=== PATIENT | male | born 1940 | race Caucasian/White ===

== ENCOUNTER 2016-11-17 11:43 | Emergency (ER) | payer MEDICARE ==
[2016-11-17 11:43] VITALS: PULSE 80
[2016-11-17 12:11] VITALS: BMI 25.7
[2016-11-17] MEDS ORDERED: Sodium Chloride 0.9% 1,000 ML IV STA (12:11)
[2016-11-17 12:15] VITALS: RESP 17; TEMP 98.1; O2SAT 97
--- NOTE | 2016-11-17 12:16 | ED PDOC ---
HPI: Abdomen Time Seen by Provider: 11/17/16 12:01 Chief Complaint (Nursing): Abdominal Pain Chief Complaint (Provider): Abd pain History Per: Patient History/Exam Limitations: no limitations Onset/Duration Of Symptoms: Days (Today) Outside of [place] travel?: No Current Symptoms Are (Timing): Still Present Additional Complaint(s): Abd pain diffuse. Last bowel movement yesterday after an enema. No nausea, vomit, diarrhea, weakness, fever, chest pain, dyspnea, back pain, headaches, dizziness. No numbness, tingles. Is depressed and has a affect like that for a long time per family. No dysuria. Past Medical History Vital Signs: Last Vital Signs Temp 98.1 F 11/17/16 12:09 Pulse 68 11/17/16 12:09 Resp 17 11/17/16 12:09 BP 131/67 11/17/16 12:09 Pulse Ox 97 11/17/16 12:09 - Medical History PMH: Anxiety, Atrial Fibrillation, Benign Prostatic Hyperplasia, Depression, Gastritis, HTN Denies: Diabetes, Hepatitis, HIV, Chronic Kidney Disease, Seizures, Sexually Transmitted Disease - Surgical History Surgical History: Cholecystectomy (May 2015), Hernia Repair, Pacemaker - Family History Family History: States: Unknown Family Hx - Living Arrangements Living Arrangements: With Family - Social History Current smoker - smoking cessation education provided: No Alcohol: None Drugs: Denies - Home Medications Home Medications: Ambulatory Orders Medication Instructions Recorded Benztropine [Cogentin] 0.5 mg PO BID #0 tab 03/10/16 DULoxetine [Cymbalta] 20 mg PO DAILY #0 ecc 03/10/16 DULoxetine [Cymbalta] 60 mg PO DAILY #0 ecc 03/10/16 Dabigatran [Pradaxa] 150 mg PO BID #0 cap 03/10/16 Digoxin [Lanoxin] 0.25 mg PO DAILY #0 tab 03/10/16 Docusate [Colace] 100 mg PO BID #0 cap 03/10/16 Ferrous Sulfate [Feosol] 325 mg PO DAILY #0 tab 03/10/16 Gabapentin [Neurontin] 100 mg PO TID #0 cap 03/10/16 Levothyroxine [Synthroid] 25 mcg PO DAILY@0630 #0 tab 03/10/16 Megestrol [Megace] 20 mg PO TID #0 tab 03/10/16 OLANZapine [Zyprexa Zydis] 5 mg PO 1600 #0 odt 03/10/16 Pantoprazole [Protonix EC Tab] 40 mg PO DAILY #0 ect 03/10/16 - Allergies Allergies/Adverse Reactions: Allergies Allergy/AdvReac Type Severity Reaction Status Date / Time clindamycin Allergy RASH Verified 11/17/16 12:09 nitrofurantoin Allergy RASH Verified 11/17/16 12:09 Penicillins Allergy RASH Verified 11/17/16 12:09 Review of Systems ROS Statement: Except As Marked, All Systems Reviewed And Found Negative Gastrointestinal: Positive for: Abdominal Pain, Constipation Psych: Positive for: Depression Physical Exam - Reviewed Nursing Documentation Reviewed: Yes Vital Signs Reviewed: Yes - Physical Exam Appears: Positive for: Non-toxic, No Acute Distress Head Exam: Positive for: ATRAUMATIC, NORMAL INSPECTION, NORMOCEPHALIC Skin: Positive for: Normal Color, Warm, DRY Eye Exam: Positive for: EOMI, Normal appearance, PERRL ENT: Positive for: Normal ENT Inspection Neck: Positive for: Normal, Painless ROM Cardiovascular/Chest: Positive for: Regular Rate, Rhythm, Chest Non Tender. Negative for: Edema Respiratory: Positive for: CNT, Normal Breath Sounds Gastrointestinal/Abdominal: Positive for: Bowel Sounds, Soft, Tenderness ( diffuse; mild.). Negative for: Distended, Guarding Back: Positive for: Normal Inspection. Negative for: L CVA Tenderness, R CVA Tenderness Extremity: Positive for: Normal ROM Neurologic/Psych: Positive for: Alert, Oriented - Laboratory Results Result Diagrams: 11/17/16 12:30 11/17/16 12:30 Interpretation Of Abn Labs: 22 bun - ECG ECG: Positive for: Interpreted By Me, Viewed By Me ECG Rhythm: Positive for: Venticular Paced - Progress ED Course And Treament: 1218: Stable. Family refusing po or IV contrast as he had other cts in the past with IV contrast and does not want more. 1447: Dr. Ewing to take over care and fu on ct. Disposition - Clinical Impression Clinical Impression: Abdominal pain - Patient ED Disposition Is Patient to be Admitted: Transfer of Care - Disposition Disposition: Transfer of Care Disposition Time: 14:48 Condition: STABLE Patient Signed Over To: Larisa Ewing
[2016-11-17 13:03] LABS: BASO % 0.4 % (0.0-2.0); EOS % 0.6 % (0.0-4.0); HEMATOCRIT 41.4 % (35.0-51.0); LYMPH # 1.3 K/uL (1.0-4.3); LYMPH % 21.9 % (20.0-40.0); MEAN CELL VOLUME 88.1 fl (80.0-94.0); MEAN CORPUSCULAR HEMOGLOBIN 30.6 pg (27.0-31.0); MEAN CORPUSCULAR HGB CONC 34.7 g/dL (33.0-37.0); MEAN PLATELET VOLUME 8.1 fl (7.2-11.7); MONO # 0.3 K/uL (0.0-0.8); MONO % 5.5 % (0.0-10.0); NEUT # 4.3 K/uL (1.8-7.0); NEUT % 71.6 % (50.0-75.0); NRBC % 0.1 % (0.0-0.0); RED CELL DISTRIBUTION WIDTH 14.5 % (11.5-14.5); WHITE BLOOD COUNT 6.1 K/uL (4.8-10.8)
[2016-11-17 13:13] LABS: BLOOD UREA NITROGEN 22 mg/dl (9-20); CALCIUM 8.7 mg/dL (8.4-10.2); CARBON DIOXIDE 28 mmol/L (22-30); CHLORIDE 100 mmol/L (98-107); GFR AFRICAN-AMERICAN > 60; GLUCOSE,RANDOM 112 mg/dL (75-110); POTASSIUM 3.7 MMOL/L (3.6-5.0); SODIUM 138 mmol/l (132-148); TOTAL PROTEIN 7.4 G/DL (6.3-8.2)
[2016-11-17 13:14] LABS: ALKALINE PHOSPHATASE 57 U/L (38-126); ALT/SGPT 27 U/L (21-72); AST/SGOT 17 U/L (17-59); LIPASE 67 U/L (23-300)
[2016-11-17 13:22] LABS: PARTIAL THROMBOPLASTIN TIME 35.8 SECONDS (23.3-32.5)
--- NOTE | 2016-11-17 15:16 | ED PDOC ---
- Laboratory Results Result Diagrams: 11/17/16 12:30 11/17/16 12:30 - ECG O2 Sat by Pulse Oximetry: 97 Medical Decision Making Medical Decision Making: received patient from Dr. Lopez. Patient is pending official reading of CT abd and pelvis. 4.10 - CT report reviewed. Patient has long h/o of chronic constipation. GI had started on Linzess and Miralax which he is mostly compliant, except for the past 2-3 days. Amitiza does not work. He is not on narcotics. He appears to be closely followed by his PMD, contaminated land consultant (Dr. Stephanie Alcaraz) and by GI. A colonoscopy was done by Dr. Dudley recently. There is lesions. A polyp was removed. Disposition Doctor Will See Patient In The: Office Counseled Patient/Family Regarding: Diagnosis, Need For Followup - Clinical Impression Clinical Impression: Chronic constipation - POA Present On Arrival: None - Disposition Referrals: Otis Alcaraz MD [Staff Provider] - Maurizio Dudley DO [Doctor Osteopathy] - Disposition: Routine/Home Disposition Time: 16:24 Condition: STABLE Instructions: Constipation (ED), High Fiber Diet (ED)
--- NOTE | 2016-11-17 16:05 | CT ---
PROCEDURE: CT Abdomen and Pelvis without intravenous contrast HISTORY: R/O stone COMPARISON: Comparison is made to the previous study dated 05/19/2015 TECHNIQUE: Axial and reformatted coronal and sagittal CT images of the abdomen and pelvis were obtained without IV or oral contrast administration.. Contrast Dose: 0 Radiation dose: Total exam DLP = 389.08 mGy-cm. This CT exam was performed using one or more of the following dose reduction techniques: Automated exposure control, adjustment of the mA and/or kV according to patient size, and/or use of iterative reconstruction technique. FINDINGS: LOWER THORAX: Unremarkable. LIVER: Again seen is low-attenuation measures 1.3 centimeter. GALLBLADDER AND BILE DUCTS: Status post cholecystectomy PANCREAS: Unremarkable. No gross lesion or ductal dilatation. SPLEEN: Unremarkable. ADRENALS: Unremarkable. No mass. KIDNEYS AND URETERS: There is a 3 millimeter nonobstructing calculus at the upper pole of the right kidney. No evidence of hydronephrosis or hydroureter VASCULATURE: Unremarkable. No aortic aneurysm. BOWEL: [id number] constipation. No evidence of bowel obstruction APPENDIX: No evidence of appendicitis. PERITONEUM: Unremarkable. No free fluid. No free air. LYMPH NODES: Unremarkable. No enlarged lymph nodes. BLADDER: Unremarkable. REPRODUCTIVE: The prostate is moderately enlarged contains foci of calcification. BONES: No acute fracture. . Degenerative changes. Scattered small foci of density in the osseous structure. Correlate clinically for possible multiple myeloma. OTHER FINDINGS: None. IMPRESSION: 3 millimeter nonobstructing calculus at the upper pole of the right kidney. No evidence of significant hydronephrosis or hydroureter. [id number] constipation. Moderate enlarged prostate. Scattered small foci of low attenuation in the osseous structures. Correlate clinically for osteopenia or multiple myeloma .
[2016-11-17 16:43] VITALS: BP 152/64; PULSE 65
--- NOTE | 2016-11-17 18:39 | CARD ---
APPROVED REPORT EKG Measurement Heart [id number] <Conclusion> Atrial fibrillation with frequent ventricular-paced complexes Low voltage QRS ST & T wave abnormality, consider inferior ischemia ST & T wave abnormality, consider anterolateral ischemia Abnormal ECG
== END 2016-11-17 16:30 | disposition home or self-care (01) ==
LOC: H.ER 11:43
DX: R10.9 Unspecified abdominal pain (principal); K59.09 Other constipation; C90.00 Multiple myeloma not having achieved remission; F32.9 Major depressive disorder, single episode, unspecified; F41.9 Anxiety disorder, unspecified; I10 Essential (primary) hypertension; I48.91 Unspecified atrial fibrillation; M85.80 Other specified disorders of bone density and structure, unspecified site; N40.0 Benign prostatic hyperplasia without lower urinary tract symptoms; Z79.01 Long term (current) use of anticoagulants; Z88.0 Allergy status to penicillin; Z95.0 Presence of cardiac pacemaker
CPT/HCPCS: 74176; 80053; 83690; 84484; 85025; 85610; 85730; 93005; 96360; 96374; 99283; J7040

== ENCOUNTER 2017-05-07 11:00 | Inpatient (IN) | payer MEDICARE, BC ==
[2017-05-07 11:00] VITALS: BMI 25.7
[2017-05-07] MEDS ORDERED: Sodium Chloride 0.9% 1,000 ML IV STA (11:36)
--- NOTE | 2017-05-07 11:42 | ED PDOC ---
HPI: General Adult Time Seen by Provider: 05/07/17 11:23 Chief Complaint (Nursing): Shortness Of Breath Chief Complaint (Provider): Shortness of Breath History Per: Patient History/Exam Limitations: no limitations Onset/Duration Of Symptoms: Days (x 1) Current Symptoms Are (Timing): Better Additional Complaint(s): Mayelin is a 77 year old male with a past medical history of A-trial Fibrillation and cholecystectomy who was brought by EMS to the Emergency Department complaining of anxiety and shortness of breath this morning. Patient states he has improved since coming to the ED. Patient states he has had generalized weakness associated with no bowel movement x 5 days. Denies vomiting, abdominal pain. PMD: No Family Provider Past Medical History Reviewed: Historical Data, Nursing Documentation, Vital Signs Vital Signs: Last Vital Signs Temp Pulse Resp BP Pulse Ox 98 05/07/17 12:05 - Medical History PMH: Anxiety, Atrial Fibrillation, Benign Prostatic Hyperplasia, Depression, Gastritis, HTN, Hypothyroidism Denies: Diabetes, Hepatitis, HIV, Chronic Kidney Disease, Seizures, Sexually Transmitted Disease - Surgical History Surgical History: Cholecystectomy (May 2015), Hernia Repair, Pacemaker - Family History Family History: States: Unknown Family Hx - Home Medications Home Medications: Ambulatory Orders Medication Instructions Recorded Benztropine [Cogentin] 0.5 mg PO BID #0 tab 03/10/16 DULoxetine [Cymbalta] 20 mg PO DAILY #0 ecc 03/10/16 DULoxetine [Cymbalta] 60 mg PO DAILY #0 ecc 03/10/16 Dabigatran [Pradaxa] 150 mg PO BID #0 cap 03/10/16 Digoxin [Lanoxin] 0.25 mg PO DAILY #0 tab 03/10/16 Docusate [Colace] 100 mg PO BID #0 cap 03/10/16 Ferrous Sulfate [Feosol] 325 mg PO DAILY #0 tab 03/10/16 Gabapentin [Neurontin] 100 mg PO TID #0 cap 03/10/16 Levothyroxine [Synthroid] 25 mcg PO DAILY@0630 #0 tab 03/10/16 Megestrol [Megace] 20 mg PO TID #0 tab 03/10/16 OLANZapine [Zyprexa Zydis] 5 mg PO 1600 #0 odt 03/10/16 Pantoprazole [Protonix EC Tab] 40 mg PO DAILY #0 ect 03/10/16 - Allergies Allergies/Adverse Reactions: Allergies Allergy/AdvReac Type Severity Reaction Status Date / Time clindamycin Allergy RASH Verified 05/07/17 11:07 nitrofurantoin Allergy RASH Verified 05/07/17 11:07 Penicillins Allergy RASH Verified 05/07/17 11:07 Review of Systems Respiratory: Positive for: Shortness of Breath (Has improved since coming to ED) Gastrointestinal: Negative for: Vomiting, Abdominal Pain Psych: Positive for: Anxiety (Has improved since coming to ED) Physical Exam - Reviewed Nursing Documentation Reviewed: Yes Vital Signs Reviewed: Yes - Physical Exam Appears: Positive for: Non-toxic Cardiovascular/Chest: Positive for: Regular Rate, Rhythm Respiratory: Positive for: Normal Breath Sounds. Negative for: Respiratory Distress (Lungs ) Gastrointestinal/Abdominal: Positive for: Bowel Sounds (Present), Soft. Negative for: Distended Rectal: Positive for: Other (Empty Vault). Negative for: Mass Extremity: Positive for: Normal ROM - Laboratory Results Result Diagrams: 05/07/17 12:35 05/07/17 12:35 - ECG O2 Sat by Pulse Oximetry: 98 (RA) Pulse Ox Interpretation: Normal Medical Decision Making Medical Decision Making: Time: 11:36 Impressions: Initial Plan: - CMP - CBC - Chest X-Ray - Sodium Chloride 0.9% 1,000 ml IV 100 mls/hr - Abdominal 2 Views Time: 11:55 - Lipase - EKG Scribe Attestation: Documented by Jason Carrasco, acting as a scribe for Hay Laurent MD Provider Scribe Attestation: All medical record entries made by the Scribe were at my direction and personally dictated by me. I have reviewed the chart and agree that the record accurately reflects my personal performance of the history, physical exam, medical decision making, and the department course for this patient. I have also personally directed, reviewed, and agree with the discharge instructions and disposition. Disposition - Clinical Impression Clinical Impression: Intestinal obstruction - Patient ED Disposition Is Patient to be Admitted: Yes - Disposition Disposition Time: 13:16 Condition: FAIR Forms: [email or web address] (Pashto) - Pt Status Changed To: Hospital Disposition Of: Inpatient - Admit Certification Admit to Inpatient:: After my assessment, the patient will require hospitalization for at least two midnights. This is because of the severity of symptoms shown, intensity of services needed, and/or the medical risk in this patient being treated as an outpatient. - POA Present On Arrival: None
[2017-05-07 12:50] LABS: BASO % 0.7 % (0.0-2.0); EOS # 0.1 K/uL (0.0-0.7); EOS % 1.6 % (0.0-4.0); HEMATOCRIT 40.1 % (35.0-51.0); LYMPH # 1.3 K/uL (1.0-4.3); LYMPH % 25.4 % (20.0-40.0); MEAN CELL VOLUME 88.5 fl (80.0-94.0); MEAN CORPUSCULAR HEMOGLOBIN 29.5 pg (27.0-31.0); MEAN CORPUSCULAR HGB CONC 33.4 g/dL (33.0-37.0); MEAN PLATELET VOLUME 7.7 fl (7.2-11.7); MONO # 0.2 K/uL (0.0-0.8); MONO % 4.4 % (0.0-10.0); NEUT # 3.5 K/uL (1.8-7.0); NEUT % 67.9 % (50.0-75.0); NRBC % 0.1 % (0.0-0.0); RED CELL DISTRIBUTION WIDTH 13.9 % (11.5-14.5); WHITE BLOOD COUNT 5.1 K/uL (4.8-10.8)
[2017-05-07 13:05] LABS: ALB/GLOB RATIO 0.9 (1.0-2.1); ALKALINE PHOSPHATASE 65 U/L (38-126); ALT/SGPT 21 U/L (21-72); AST/SGOT 14 U/L (17-59); BILIRUBIN,TOTAL 0.7 mg/dl (0.2-1.3); BLOOD UREA NITROGEN 14 mg/dl (9-20); CALCIUM 8.4 mg/dL (8.4-10.2); CARBON DIOXIDE 30 mmol/L (22-30); CHLORIDE 104 mmol/L (98-107); GFR AFRICAN-AMERICAN > 60; GLUCOSE,RANDOM 92 mg/dL (75-110); LIPASE 50 U/L (23-300); POTASSIUM 3.8 MMOL/L (3.6-5.0); SODIUM 142 mmol/l (132-148); TOTAL PROTEIN 7.5 G/DL (6.3-8.2)
--- NOTE | 2017-05-07 13:41 | RAD ---
HISTORY: sob COMPARISON: Chest radiographs 02/24/2016. TECHNIQUE: Chest PA and lateral FINDINGS: LUNGS: No active pulmonary disease. PLEURA: No significant pleural effusion identified. No pneumothorax apparent. CARDIOVASCULAR: Mild cardiomegaly is appreciate however there is no pulmonary vascular derangement identified. Unipolar permanent cardiac pacemaker again identified. OSSEOUS STRUCTURES: No significant abnormalities. VISUALIZED UPPER ABDOMEN: Surgical clips in the right upper quadrant abdomen. OTHER FINDINGS: None. IMPRESSION: Mild cardiomegaly. No pulmonary vascular derangement. No infiltrate or pleural effusion bilaterally.
--- NOTE | 2017-05-07 13:43 | RAD ---
HISTORY: constipation COMPARISON: Abdomen and pelvis CT examination 11/17/2016. FINDINGS: BOWEL: Gas is seen distending primarily large bowel loops as well as occasional small-bowel loops. A few air-fluid levels are seen in the left efren abdomen which are presumed predominantly in small-bowel. No free intraperitoneal gas or abnormal intra-abdominal calcifications are noted. Surgical clips in the right upper quadrant. Overall pattern is felt to be nonspecific but likely or to reflect bowel obstruction at this time. Developing ileus is possible. Further clinical correlation is advised. BONES: Normal. OTHER FINDINGS: None. IMPRESSION: Possible developing ileus. Small bowel obstruction is not favored. Follow-up clinical and radiographic monitoring are advised.
[2017-05-07] MEDS: Sodium Chloride 0.9% 1,000 ML IV SCH (23:00)
[2017-05-08] MEDS: Sodium Chloride 0.9% 1,000 ML IV SCH (06:05)
--- NOTE | 2017-05-08 08:02 | CP.PCM.CON ---
<Rodrick Givens - Last Filed: 05/08/17 09:49> History of Present Illness - History of Present Illness History of Present Illness: PGY4 Initial GI Consult Mayelin Lopez is a 77M w/ hx of chronic constipation, colon cancer diagnosed 17 years ago s/p segmental colon resection and chemotherapy who presents to the ER with complaints of abd pain and constipation. Pt states that he suffers from chronic constipation for years. He notes that he has been taking miralax twice a day for months without significant relief. he notes that his last BM was 5 days ago and it was hard. Pt denies any BRBPR or melena. He denies any nausea or vomiting. He notes that he had abd pain which started 3 days ago. He states that the pain was in the lower quadrant bilaterally. According to the pt, he often gets abdominal pain with severe constipation. He notes that his recently administered an enema without significant relief. He has a hx of colon cancer. He states that he was diagnosed at the age of 60 and subsequently had a part of his distal colon removed and received chemotherapy. He has a primary GI physician in [place] and according to him, underwent a surveillance colonoscopy last year but had a poor prep. Since admission, RN reports no nausea, vomiting, or BM. Spoke to who was bedside, she presented a CT abdomen from [place] which revealed sigmoid stricture and no distal obstruction. PMHx: Endogenous Depression, Dysphagia, Chronic A Fib with S/P VVI pacer implant on pradaxa, hypothyroid PSHx:S/P Partial colectomy forCa Colon, lap della 2014 Family Hx: Denies family hx of colon ca Social Hx: pt was reluctant to give any additional hx Endoscopy Hx: colonscopy 2016: poor prep, pt was reluctant to give any additional hx ROS: 12 point ROS conducted, neg other than above Past Patient History - Infectious Disease Hx of Infectious Diseases: None - Past Social History Smoking Status: Never Smoked - CARDIAC Hx Atrial Fibrillation: Yes Hx Hypertension: Yes Hx Pacemaker: Yes - PULMONARY Hx Respiratory Disorders: No Hx Tuberculosis: No - NEUROLOGICAL Hx Seizures: No - HEENT Hx Cataracts: Yes (Sx Hx) - RENAL Hx Chronic Kidney Disease: No - ENDOCRINE/METABOLIC Hx Hypothyroidism: Yes - HEMATOLOGICAL/ONCOLOGICAL Hx Human Immunodeficiency Virus (HIV): No - INTEGUMENTARY Hx Dermatological Problems: No - MUSCULOSKELETAL/RHEUMATOLOGICAL Hx Falls: Yes (unsteady when anxious) Hx Unsteady Gait: Yes - GASTROINTESTINAL Hx Gastritis: Yes - GENITOURINARY/GYNECOLOGICAL Hx Sexually Transmitted Disorders: No - PSYCHIATRIC Hx Anxiety: Yes Hx Depression: Yes - SURGICAL HISTORY Hx Cholecystectomy: Yes (May 2015) - ANESTHESIA Hx Anesthesia: Yes Hx Anesthesia Reactions: No Meds Allergies/Adverse Reactions: Allergies Allergy/AdvReac Type Severity Reaction Status Date / Time clindamycin Allergy RASH Verified 05/07/17 11:07 nitrofurantoin Allergy RASH Verified 05/07/17 11:07 Penicillins Allergy RASH Verified 05/07/17 11:07 - Medications Medications: Current Medications Sodium Chloride (Sodium Chloride 0.9%) 1,000 mls @ 100 mls/hr IV .Q10H ERROL Stop: 05/08/17 20:07 Lorazepam (Ativan) 0.5 mg IVP DAILY PRN PRN Reason: Agitation Magnesium Citrate (Citrate Of Mag) 300 ml PO ONCE ONE Stop: 05/08/17 07:49 Polyethylene Glycol (Miralax) 17 gm PO TID ERROL Sennosides (Senokot Tab) 17.2 mg PO HS ERROL Physical Exam - Constitutional Appears: Non-toxic, No Acute Distress - Head Exam Head Exam: ATRAUMATIC, NORMOCEPHALIC - Eye Exam Eye Exam: Normal appearance - ENT Exam ENT Exam: Mucous Membranes Moist - Respiratory Exam Respiratory Exam: Clear to Auscultation Bilateral, NORMAL BREATHING PATTERN. absent: Rales, Rhonchi, Wheezes, Respiratory Distress - Cardiovascular Exam Cardiovascular Exam: REGULAR RHYTHM, +S1, +S2 - GI/Abdominal Exam GI & Abdominal Exam: Hypoactive Bowel Sounds, Soft. absent: Distended, Firm, Guarding, Hernia, Rebound, Rigid, Tenderness - Rectal Exam Rectal Exam: Deferred - Extremities Exam Extremities exam: Negative for: joint swelling, pedal edema - Neurological Exam Neurological exam: Alert, Oriented x3 - Psychiatric Exam Psychiatric exam: Agitated, Flat Affect - Skin Skin Exam: Dry, Intact, Normal Color, Warm Results - Vital Signs Recent Vital Signs: Last Vital Signs Temp 97.9 F 05/08/17 00:18 Pulse 72 05/08/17 00:18 Resp 18 05/08/17 00:18 BP 121/64 05/08/17 00:18 Pulse Ox 98 05/08/17 00:18 - Labs Result Diagrams: 05/07/17 12:35 05/07/17 12:35 Labs: Laboratory Results - last 24 hr 05/07/17 05/07/17 05/07/17 12:35 12:35 13:30 WBC 5.1 RBC 4.52 Hgb 13.4 Hct 40.1 MCV 88.5 MCH 29.5 MCHC 33.4 RDW 13.9 Plt Count 159 MPV 7.7 Neut % (Auto) 67.9 Lymph % (Auto) 25.4 Snyder % (Auto) 4.4 Eos % (Auto) 1.6 Baso % (Auto) 0.7 Neut # 3.5 Lymph # 1.3 Snyder # 0.2 Eos # 0.1 Baso # 0.0 PT 14.0 H INR 1.2 Sodium 142 Potassium 3.8 Chloride 104 Carbon Dioxide 30 Anion Gap 12 BUN 14 Creatinine 0.7 L Est GFR ( Amer) > 60 Est GFR (Non-Af Amer) > 60 Random Glucose 92 Calcium 8.4 Total Bilirubin 0.7 AST 14 L ALT 21 D Alkaline Phosphatase 65 Total Protein 7.5 Albumin 3.7 Globulin 3.9 Albumin/Globulin Ratio 0.9 L Lipase 50 Assessment & Plan - Assessment and Plan (Free Text) Assessment: Mayelin Lopez is a 77M w/ a hx of Colon ca s/p partial colon resection, chemotherapy, chronic afib w/ pacemaker on anticoagulation, chronic constipation , depression who presents with abd pain and constipation. Acute on chronic constipation, SBO unlikely due to lack of nausea and vomiting ( + flatus yesterday) Ileus Abd pain likely 2/2 to above Hx of colon cancer Plan: -reviewed abd xray, small air fluid levels, no obvious obstructions, Mod amounts of stool -Refused rectal exam -water enema x1 -will start aggressive bowel regiment -miralax TID, senna at bedtime, Mag citrate x1 today -if symptoms worsen will get a CT abd -consulted surgery -will plan endoscopy procedure based on subsequent bowel movements in the next few days -if pt starts vomiting and becomes nauseous, suspect SBO and consult general surgery Will D/W Dr. Hicks <Sharmin Hicks MD - Last Filed: 05/08/17 17:54> Meds - Medications Medications: Current Medications Sodium Chloride (Sodium Chloride 0.9%) 1,000 mls @ 100 mls/hr IV .Q10H ERROL Stop: 05/08/17 20:07 Last Admin: 05/08/17 06:05 Dose: Not Given Lorazepam (Ativan) 0.5 mg IVP DAILY PRN PRN Reason: Agitation Polyethylene Glycol (Miralax) 17 gm PO TID ERROL Last Admin: 05/08/17 17:10 Dose: 17 gm Sennosides (Senokot Tab) 17.2 mg PO HS ERROL Results - Vital Signs Recent Vital Signs: Last Vital Signs Temp 98.6 F 05/08/17 16:35 Pulse 60 05/08/17 16:35 Resp 20 05/08/17 16:35 BP 160/85 H 05/08/17 16:35 Pulse Ox 98 05/08/17 16:35 - Labs Result Diagrams: 05/07/17 12:35 05/07/17 12:35 Attending/Attestation - Attestation I have personally seen and examined this patient.: Yes I have fully participated in the care of the patient.: Yes I have reviewed all pertinent clinical information: Yes Notes (Text): 05/08/17 17:47 Patient seen with GI fellow. This is a 77 yr old M with past history of Rectal Ca in 1998 s/p primary anastomosis of rectosigmoid s/p chemotherapy 3 months with no radiation, chronic afib w/ pacemaker on anticoagulation, new onset constipation and thin caliber stools. He is presenting with symptoms of ileus but passing flatus and belching. He had colonosocpy in November 2015 that had poor prep. He had Ct scan at outside center which showed thickening of left colon an dcystic lesions in liver. Reviewed abd xray, small air fluid levels. Will give aggressive bowel regimen and supportive care. CT abdomen with po and plan for tentative colonoscopy on
--- NOTE | 2017-05-08 09:29 | CP.PCM.HP ---
History of Present Illness - History of Present Illness History of Present Illness: This 77-year-old man came to the emergency room complaining of severe abdominal distention and persistent discomfort along with obstipation for approximately 3 days. He had a lot of retching but no godwin vomiting. He complained of severe anorexia. There were no chills and there was no fever. 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 This was done more than 10 years back and subsequently the patient has had regular visits with his surgeon and there has been no recurrence. The patient went through a bout of severe depression approximately 2 years back and was repeatedly hospitalized during this period. As part of his depression he has had multiple episodes of severe constipation and required repeated like symptoms and enemas as well. There is a long history of atrial fibrillation and the patient has required a VVI pacemaker approximately 6 years back. He has been chronically anticoagulated because of atrial fibrillation. There is no history of coronary artery disease or myocardial infarction or congestive cardiac failure. On physical examination this is an elderly man who appears depressed. He is alert awake and oriented. He is afebrile with a pulse rate of 64 bpm regular and a blood pressure of 124/74 mmHg. His jugular venous pressure was not elevated. There was no edema or his lower extremity. His extremities his pedal pulses were well felt. His jugular venous pressure was not elevated the abdomen was slightly distended. Loud intestinal sounds were audible. There was generalized tenderness. Liver and spleen were not palpable and no abdominal masses were felt. Rectal examination was deferred. His electrocardiogram showed atrial fibrillation with previous paced rhythm. His lab data showed normal BUN and creatinine and electrolytes. His hemoglobin and hematocrit was normal. X-ray of his abdomen showed air-fluid levels. Impression: Intestinal obstruction with a history of colonic malignancy. Status post partial colectomy for rectosigmoid colon malignancy. Chronic atrial fibrillation with status VVI pacemaker implant. History of severe depression. The case has been discussed with GI physician. The plans are to carry out a sigmoidoscopy after appropriate preparation. Present on Admission - Present on Admission Any Indicators Present on Admission: No Past Patient History - Infectious Disease Hx of Infectious Diseases: None - Past Social History Smoking Status: Never Smoked - CARDIAC Hx Atrial Fibrillation: Yes Hx Hypertension: Yes Hx Pacemaker: Yes - PULMONARY Hx Respiratory Disorders: No Hx Tuberculosis: No - NEUROLOGICAL Hx Seizures: No - HEENT Hx Cataracts: Yes (Sx Hx) - RENAL Hx Chronic Kidney Disease: No - ENDOCRINE/METABOLIC Hx Hypothyroidism: Yes - HEMATOLOGICAL/ONCOLOGICAL Hx Human Immunodeficiency Virus (HIV): No - INTEGUMENTARY Hx Dermatological Problems: No - MUSCULOSKELETAL/RHEUMATOLOGICAL Hx Falls: Yes (unsteady when anxious) Hx Unsteady Gait: Yes - GASTROINTESTINAL Hx Gastritis: Yes - GENITOURINARY/GYNECOLOGICAL Hx Sexually Transmitted Disorders: No - PSYCHIATRIC Hx Anxiety: Yes Hx Depression: Yes - SURGICAL HISTORY Hx Cholecystectomy: Yes (May 2015) - ANESTHESIA Hx Anesthesia: Yes Hx Anesthesia Reactions: No Meds Allergies/Adverse Reactions: Allergies Allergy/AdvReac Type Severity Reaction Status Date / Time clindamycin Allergy RASH Verified 05/07/17 11:07 nitrofurantoin Allergy RASH Verified 05/07/17 11:07 Penicillins Allergy RASH Verified 05/07/17 11:07 Results - Vital Signs Recent Vital Signs: Last Vital Signs Temp 98.3 F 05/08/17 07:53 Pulse 78 05/08/17 07:53 Resp 20 05/08/17 07:53 BP 139/76 05/08/17 07:53 Pulse Ox 95 05/08/17 07:53 - Labs Result Diagrams: 05/07/17 12:35 05/07/17 12:35 Labs: Laboratory Results - last 24 hr 05/07/17 05/07/17 05/07/17 12:35 12:35 13:30 WBC 5.1 RBC 4.52 Hgb 13.4 Hct 40.1 MCV 88.5 MCH 29.5 MCHC 33.4 RDW 13.9 Plt Count 159 MPV 7.7 Neut % (Auto) 67.9 Lymph % (Auto) 25.4 [place] % (Auto) 4.4 Eos % (Auto) 1.6 Baso % (Auto) 0.7 Neut # 3.5 Lymph # 1.3 [place] # 0.2 Eos # 0.1 Baso # 0.0 PT 14.0 H INR 1.2 Sodium 142 Potassium 3.8 Chloride 104 Carbon Dioxide 30 Anion Gap 12 BUN 14 Creatinine 0.7 L Est GFR ( Amer) > 60 Est GFR (Non-Af Amer) > 60 Random Glucose 92 Calcium 8.4 Total Bilirubin 0.7 AST 14 L ALT 21 D Alkaline Phosphatase 65 Total Protein 7.5 Albumin 3.7 Globulin 3.9 Albumin/Globulin Ratio 0.9 L Lipase 50
[2017-05-08] MEDS: Magnesium Citrate Oral SOL (300 ml) PO ONE ×2 (09:30→09:37)
[2017-05-08] MEDS: POLYETHYLENE GLYCOL 3350 17 GM/Dose PACKET PO SCH ×3 (09:37→17:10)
--- NOTE | 2017-05-08 11:01 | CP.PCM.CON ---
<Anastasia Singh - Last Filed: 05/08/17 10:37> History of Present Illness - History of Present Illness History of Present Illness: General Surgery Dr. Odonnell (covering Dr. Gale) 77 y/o M w/ PMHx of chronic constipation, sigmoid Ca Dx 17 years ago s/p sigmoidectomy and chemo presents to the ED c/o abd pain and constipation. Per family present at bedside, pt's last BM was roughly 5days ago. reports giving pt tap water enema at home with little to no relief of constipation. Pt habitually takes Miralax and Senna at home for his chronic constipation which has been worsening over the last few years. Pt also reports abd pain x3 days mostly on the (L) side. Pt denies N/V, F/C, CP, SOB. Pt tentatively scheduled for colonoscopy tomorrow. Surgery consulted for colonic stricture seen on previous CT scan. PMHx: see above, depression, BPH, Afib, HTN, Pacemaker, hypothyroidism Meds: reviewed in chart ALL: clindamycin, nitrofurantoin, PCN --> rash PSHx: lap della, open inguinal hernia, pacemaker placement, prostate pins, sigmoidectomy SHx: denies tobacco, EtOH, drug use FHx: non-contributory Review of Systems - Review of Systems All systems: reviewed and no additional remarkable complaints except (see HPI) Past Patient History - Infectious Disease Hx of Infectious Diseases: None - Past Social History Smoking Status: Never Smoked - CARDIAC Hx Atrial Fibrillation: Yes Hx Hypertension: Yes Hx Pacemaker: Yes - PULMONARY Hx Respiratory Disorders: No Hx Tuberculosis: No - NEUROLOGICAL Hx Seizures: No - HEENT Hx Cataracts: Yes (Sx Hx) - RENAL Hx Chronic Kidney Disease: No - ENDOCRINE/METABOLIC Hx Hypothyroidism: Yes - HEMATOLOGICAL/ONCOLOGICAL Hx Human Immunodeficiency Virus (HIV): No - INTEGUMENTARY Hx Dermatological Problems: No - MUSCULOSKELETAL/RHEUMATOLOGICAL Hx Falls: Yes (unsteady when anxious) Hx Unsteady Gait: Yes - GASTROINTESTINAL Hx Gastritis: Yes - GENITOURINARY/GYNECOLOGICAL Hx Sexually Transmitted Disorders: No - PSYCHIATRIC Hx Anxiety: Yes Hx Depression: Yes - SURGICAL HISTORY Hx Cholecystectomy: Yes (May 2015) - ANESTHESIA Hx Anesthesia: Yes Hx Anesthesia Reactions: No Meds Allergies/Adverse Reactions: Allergies Allergy/AdvReac Type Severity Reaction Status Date / Time clindamycin Allergy RASH Verified 05/07/17 11:07 nitrofurantoin Allergy RASH Verified 05/07/17 11:07 Penicillins Allergy RASH Verified 05/07/17 11:07 - Medications Medications: Current Medications Sodium Chloride (Sodium Chloride 0.9%) 1,000 mls @ 100 mls/hr IV .Q10H [facility] Stop: 05/08/17 20:07 Last Admin: 05/08/17 06:05 Dose: Not Given Lorazepam (Ativan) 0.5 mg IVP DAILY PRN PRN Reason: Agitation Polyethylene Glycol (Miralax) 17 gm PO TID [facility] Last Admin: 05/08/17 09:37 Dose: 17 gm Sennosides (Senokot Tab) 17.2 mg PO HS [facility] Physical Exam - Constitutional Appears: Non-toxic, No Acute Distress - Head Exam Head Exam: NORMAL INSPECTION - Eye Exam Eye Exam: Normal appearance - ENT Exam ENT Exam: Mucous Membranes Moist - Respiratory Exam Respiratory Exam: NORMAL BREATHING PATTERN. absent: Accessory Muscle Use, Respiratory Distress - Cardiovascular Exam Cardiovascular Exam: Tachycardia. absent: Bradycardia - GI/Abdominal Exam GI & Abdominal Exam: Soft, Tenderness (mild LUQ TTP). absent: Distended, Firm, Guarding, Rebound - Extremities Exam Extremities exam: Positive for: normal inspection - Neurological Exam Neurological exam: Alert, Oriented x3 - Psychiatric Exam Psychiatric exam: Normal Affect, Normal Mood - Skin Skin Exam: Dry, Intact, Normal Color, Warm Results - Vital Signs Recent Vital Signs: Last Vital Signs Temp 98.3 F 05/08/17 07:53 Pulse 78 05/08/17 07:53 Resp 20 05/08/17 07:53 BP 139/76 05/08/17 07:53 Pulse Ox 95 05/08/17 07:53 - Labs Result Diagrams: 05/07/17 12:35 05/07/17 12:35 Labs: Laboratory Results - last 24 hr 05/07/17 05/07/17 05/07/17 12:35 12:35 13:30 WBC 5.1 RBC 4.52 Hgb 13.4 Hct 40.1 MCV 88.5 MCH 29.5 MCHC 33.4 RDW 13.9 Plt Count 159 MPV 7.7 Neut % (Auto) 67.9 Lymph % (Auto) 25.4 [place] % (Auto) 4.4 Eos % (Auto) 1.6 Baso % (Auto) 0.7 Neut # 3.5 Lymph # 1.3 [place] # 0.2 Eos # 0.1 Baso # 0.0 PT 14.0 H INR 1.2 Sodium 142 Potassium 3.8 Chloride 104 Carbon Dioxide 30 Anion Gap 12 BUN 14 Creatinine 0.7 L Est GFR ( Amer) > 60 Est GFR (Non-Af Amer) > 60 Random Glucose 92 Calcium 8.4 Total Bilirubin 0.7 AST 14 L ALT 21 D Alkaline Phosphatase 65 Total Protein 7.5 Albumin 3.7 Globulin 3.9 Albumin/Globulin Ratio 0.9 L Lipase 50 - Imaging and Cardiology Abdominal x-ray Status: Image reviewed by me, Report reviewed by me Assessment & Plan - Assessment and Plan (Free Text) Assessment: 77 y/o M w/ chronic constipation and abd pain - bowel prep and colonoscopy as per GI - f/u results of colonoscopy - monitor labs - no surgical intervention at this time - will continue to follow Pt seen and discussed w/ Dr. Belle Singh DO PGY2 <Madan Odonnell - Last Filed: 05/09/17 10:12> History of Present Illness - History of Present Illness History of Present Illness: Patient was seen and examined at the bedside. Agree with resident's note above. Meds - Medications Medications: Current Medications Bisacodyl (Dulcolax) 10 mg PO ONCE ONE Stop: 05/09/17 12:01 Lorazepam (Ativan) 0.5 mg IVP DAILY PRN PRN Reason: Agitation Polyethylene Glycol (Miralax) 17 gm PO TID [facility] Last Admin: 05/09/17 08:57 Dose: 17 gm Polyethylene Glycol/Electrolytes (Golytely) 4,000 ml PO ONCE ONE Stop: 05/09/17 12:01 Sennosides (Senokot Tab) 17.2 mg PO HS [facility] Last Admin: 05/08/17 21:22 Dose: 17.2 mg Results - Vital Signs Recent Vital Signs: Last Vital Signs Temp 98.0 F 05/09/17 07:32 Pulse 61 05/09/17 07:32 Resp 20 05/09/17 07:32 BP 133/72 05/09/17 07:32 Pulse Ox 98 05/09/17 07:32 - Labs Result Diagrams: 05/07/17 12:35 05/07/17 12:35
[2017-05-08] MEDS ORDERED: Iohexol 240 (50 ml) PO ONE (12:57)
--- NOTE | 2017-05-08 17:55 | CT ---
PROCEDURE: CT Abdomen and Pelvis with contrast HISTORY: r/o obstruction COMPARISON: And pelvis CT examination without contrast 11/17/2016. TECHNIQUE: Contrast dose: None Radiation dose: Total exam DLP = 450.61 mGy-cm. This CT exam was performed using one or more of the following dose reduction techniques: Automated exposure control, adjustment of the mA and/or kV according to patient size, and/or use of iterative reconstruction technique. FINDINGS: LOWER THORAX: Mild cardiomegaly this is noted with pacemaker/implanted defibrillator leads in the right heart once again. LIVER: 1.1 cm cyst seen the medial right lobe liver with liver otherwise grossly nonfocal. GALLBLADDER AND BILE DUCTS: Prior cholecystectomy without prominent common bile duct appreciated. PANCREAS: Mild pancreatic atrophy is appreciated without definitive mass. SPLEEN: Unremarkable. ADRENALS: Unremarkable. No mass. KIDNEYS AND URETERS: Punctate intrarenal calculi identified in the upper and midpole right kidney with none identified at the left. Small cyst seen at the midpole left kidney anteriorly. The bilateral pelvocaliceal systems appear upper limits normal volume. Minimal perinephric streaky changes are seen bilaterally. VASCULATURE: Unremarkable. No aortic aneurysm. BOWEL: The stomach appears collapsed and is poorly evaluated.The bowel does not appear obstructed although there is gaseous distention of numerous large bowel loops anomaly at the mid large-bowel. Prominent retained fecal material seen throughout the colon including liquified fecal material suggestive diarrhea. Clinically correlate further. Small bowel is not distended with the majority small-bowel opacified by oral contrast material close to but not including the terminal ileum. No suspicious mural thickening is appreciated throughout the bowel. APPENDIX: Appendix not identified. PERITONEUM: Unremarkable. No free fluid. No free air. LYMPH NODES: Unremarkable. No enlarged lymph nodes. BLADDER: Urinary bladder appears somewhat thick-walled but is not fully distended. Clinically correlate for potential cystitis. No radiodense urolithiasis is seen within the urinary bladder lumen. REPRODUCTIVE: Enlarged prostate gland is identified with numerous radiation seed implants. BONES: No acute fracture. OTHER FINDINGS: None. IMPRESSION: 1. A limited large bowel ileus is possible. Distal large bowel obstruction is not favored. Overall bowel gas pattern may be within normal limits. Consider possible diarrhea as discussed above. Small bowel is unremarkable diffusely. 2. Prior cholecystectomy. 3. Upper limits normal volume pelvocaliceal systems bilaterally with punctate intrarenal calculi nonobstructive at the upper midpole right kidney. Urinary bladder wall is mildly thickened though the bladder is not fully distended either. Clinically correlate for potential cystitis. 4. Other lesser findings as discussed above.
[2017-05-09] MEDS: POLYETHYLENE GLYCOL 3350 17 GM/Dose PACKET PO SCH ×3 (08:57→16:36)
--- NOTE | 2017-05-09 08:59 | CP.PCM.PN ---
Subjective - Date & Time of Evaluation Date of Evaluation: 05/09/17 Time of Evaluation: 08:30 - Subjective Subjective: Has had no further BM since yesterday and no flatus since yesterday Abd moderately distended, not painful No vomitting (Burping and belching continues) HR 64 BPM, reg (probably paced) BP 144/74 mm Hg No signs of CHF Int sounds well heard Vague tenderness+, no guarding or rigidity CT Abd findings noted Spoke with Dr. Hicks (Colonoscopy is planned for tomorrow) Spoke with pt's Objective - Vital Signs/Intake and Output Vital Signs (last 24 hours): Temp Pulse Resp BP Pulse Ox 98.0 F 61 20 133/72 98 05/09/17 07:32 05/09/17 07:32 05/09/17 07:32 05/09/17 07:32 05/09/17 07:32 - Medications Medications: Current Medications Bisacodyl (Dulcolax) 10 mg PO ONCE ONE Stop: 05/09/17 12:01 Lorazepam (Ativan) 0.5 mg IVP DAILY PRN PRN Reason: Agitation Polyethylene Glycol (Miralax) 17 gm PO TID [facility] Last Admin: 05/08/17 17:10 Dose: 17 gm Polyethylene Glycol/Electrolytes (Golytely) 4,000 ml PO ONCE ONE Stop: 05/09/17 12:01 Sennosides (Senokot Tab) 17.2 mg PO [facility] Last Admin: 05/08/17 21:22 Dose: 17.2 mg - Labs Labs: 05/07/17 12:35 05/07/17 12:35 PT 14.0 Seconds (9.8-13.1) H 05/07/17 13:30 INR 1.2 (0.9-1.2) 05/07/17 13:30
--- NOTE | 2017-05-09 10:52 | CP.PCM.PN ---
<Rodrick Givens - Last Filed: 05/09/17 10:54> Subjective - Date & Time of Evaluation Date of Evaluation: 05/09/17 Time of Evaluation: 09:00 - Subjective Subjective: PGY4 GI Follow-up Pt seen and examined bedside No BM overnight as per RN and pt according to , his not passing flatus Pt is tolerating diet Pt is also complaining of lower abd discomfort ROS: 10 point ROS conducted, neg other than above Objective - Vital Signs/Intake and Output Vital Signs (last 24 hours): Temp Pulse Resp BP Pulse Ox 98.0 F 61 20 133/72 98 05/09/17 07:32 05/09/17 07:32 05/09/17 07:32 05/09/17 07:32 05/09/17 07:32 - Medications Medications: Current Medications Bisacodyl (Dulcolax) 10 mg PO ONCE ONE Stop: 05/09/17 12:01 Lorazepam (Ativan) 0.5 mg IVP DAILY PRN PRN Reason: Agitation Polyethylene Glycol (Miralax) 17 gm PO TID [facility] Last Admin: 05/09/17 08:57 Dose: 17 gm Polyethylene Glycol/Electrolytes (Golytely) 4,000 ml PO ONCE ONE Stop: 05/09/17 12:01 Sennosides (Senokot Tab) 17.2 mg PO [facility] Last Admin: 05/08/17 21:22 Dose: 17.2 mg - Labs Labs: 05/07/17 12:35 05/07/17 12:35 PT 14.0 Seconds (9.8-13.1) H 05/07/17 13:30 INR 1.2 (0.9-1.2) 05/07/17 13:30 - Constitutional Appears: No Acute Distress, Confused - Head Exam Head Exam: ATRAUMATIC, NORMOCEPHALIC - Eye Exam Eye Exam: Normal appearance - ENT Exam ENT Exam: Mucous Membranes Moist - Respiratory Exam Respiratory Exam: Clear to Ausculation Bilateral, NORMAL BREATHING PATTERN. absent: Rales, Rhonchi, Wheezes, Respiratory Distress - Cardiovascular Exam Cardiovascular Exam: Irregular Rhythm - GI/Abdominal Exam GI & Abdominal Exam: Soft, Hypoactive Bowel Sounds. absent: Guarding, Rigid Additional comments: tender in lower left quadrant - Extremities Exam Extremities Exam: absent: Joint Swelling, Pedal Edema - Neurological Exam Neurological Exam: Alert, Normal Gait, Oriented x3 - Psychiatric Exam Psychiatric exam: Depressed, Flat Affect Assessment and Plan - Assessment and Plan (Free Text) Assessment: Mayelin Lopez is a 77M w/ a hx of Colon ca s/p partial colon resection, chemotherapy, chronic afib w/ pacemaker on anticoagulation, chronic constipation , depression who presents with abd pain and constipation. Acute on chronic constipation, SBO unlikely due to lack of nausea and vomiting ( + flatus yesterday) Ileus Abd pain likely 2/2 to above Hx of colon cancer Plan: -Ct reviewed, no obvious obstruction or stricter noted -plan to take the pt for colonoscopy tomorrow -pt to fill prescription for suprep as outpt and bring for bowel prep -if unable to obtain suprep, okay for golytely -continue miralax TID -if unable to take the prep, recommend x3 enemas in the AM -remain on clears today -NPO after midnight except meds D/w dr. Hicks <Kurt PADILLA,Tylershade gap - Last Filed: 05/09/17 17:38> Objective - Vital Signs/Intake and Output Vital Signs (last 24 hours): Temp Pulse Resp BP Pulse Ox 98.6 F 69 20 163/82 H 98 05/09/17 16:43 05/09/17 16:43 05/09/17 16:43 05/09/17 16:43 05/09/17 16:43 - Medications Medications: Current Medications Home Med (Patient's Own Medication) 0 unit PO BID@0400,1600 [facility] Stop: 05/10/17 04:01 Last Admin: 05/09/17 16:33 Dose: 1 unit Lorazepam (Ativan) 0.5 mg IVP DAILY PRN PRN Reason: Agitation Polyethylene Glycol (Miralax) 17 gm PO TID [facility] Last Admin: 05/09/17 16:36 Dose: Not Given Sennosides (Senokot Tab) 17.2 mg PO HS [facility] Last Admin: 05/08/17 21:22 Dose: 17.2 mg - Labs Labs: 05/07/17 12:35 05/07/17 12:35 PT 14.0 Seconds (9.8-13.1) H 05/07/17 13:30 INR 1.2 (0.9-1.2) 05/07/17 13:30 Attending/Attestation - Attestation I have personally seen and examined this patient.: Yes I have fully participated in the care of the patient.: Yes I have reviewed all pertinent clinical information, including history, physical exam and plan: Yes Notes (Text): 05/09/17 17:30 This is a 77 yr old M with history of Colon Ca s/p partial colon resection, chemotherapy, chronic afib w/ pacemaker on anticoagulation, chronic constipation , depression who presents with abdominal pain and constipation and ileus. CT reviewed, no obvious obstruction or stricture noted. Scheduled for colonoscopy in am. Gave script to for suprep. NPO past midnight. Hold pradaxa for biopsies. Continue bowel regimen. Clear liquid diet
--- NOTE | 2017-05-09 11:13 | CP.PCM.PN ---
<Anastasia Singh - Last Filed: 05/09/17 11:09> Subjective - Date & Time of Evaluation Date of Evaluation: 05/09/17 Time of Evaluation: 10:00 - Subjective Subjective: General Surgery Dr. Odonnell Pt S&E @bedside. NAEO. Pt denies abd pain, F/C, N/V. (+)Flatus (-)BM. tolerating CLD. Objective - Vital Signs/Intake and Output Vital Signs (last 24 hours): Temp Pulse Resp BP Pulse Ox 98.0 F 61 20 133/72 98 05/09/17 07:32 05/09/17 07:32 05/09/17 07:32 05/09/17 07:32 05/09/17 07:32 - Medications Medications: Current Medications Bisacodyl (Dulcolax) 10 mg PO ONCE ONE Stop: 05/09/17 12:01 Home Med (Patient's Own Medication) 0 unit PO BID [facility] Lorazepam (Ativan) 0.5 mg IVP DAILY PRN PRN Reason: Agitation Polyethylene Glycol (Miralax) 17 gm PO TID [facility] Last Admin: 05/09/17 08:57 Dose: 17 gm Sennosides (Senokot Tab) 17.2 mg PO HS [facility] Last Admin: 05/08/17 21:22 Dose: 17.2 mg - Labs Labs: 05/07/17 12:35 05/07/17 12:35 PT 14.0 Seconds (9.8-13.1) H 05/07/17 13:30 INR 1.2 (0.9-1.2) 05/07/17 13:30 - Constitutional Appears: Non-toxic, No Acute Distress - Head Exam Head Exam: NORMAL INSPECTION - Eye Exam Eye Exam: Normal appearance - ENT Exam ENT Exam: Mucous Membranes Moist - Respiratory Exam Respiratory Exam: NORMAL BREATHING PATTERN. absent: Accessory Muscle Use, Respiratory Distress - Cardiovascular Exam Cardiovascular Exam: absent: Bradycardia, Tachycardia - GI/Abdominal Exam GI & Abdominal Exam: Soft. absent: Distended, Guarding, Rigid, Tenderness, Rebound - Neurological Exam Neurological Exam: Alert, Awake, Oriented x3 - Psychiatric Exam Psychiatric exam: Flat Affect, Normal Mood - Skin Skin Exam: Dry, Intact, Normal Color, Warm Assessment and Plan - Assessment and Plan (Free Text) Assessment: 77 y/o M w/ chronic constipation - Colonoscopy rescheduled for tomorrow --> f/u findings - continue bowel regimen per GI - monitor bowel function - non-opiod pain management - GI/DVT PPx Pt seen and discussed w/ Dr. Belle Singh DO PGY2 <Madan Odonnell - Last Filed: 05/09/17 11:16> Subjective - Subjective Subjective: Patient was seen and examined at the bedside. Agree with resident's note above. Objective - Vital Signs/Intake and Output Vital Signs (last 24 hours): Temp Pulse Resp BP Pulse Ox 98.0 F 61 20 133/72 98 05/09/17 07:32 05/09/17 07:32 05/09/17 07:32 05/09/17 07:32 05/09/17 07:32 - Medications Medications: Current Medications Bisacodyl (Dulcolax) 10 mg PO ONCE ONE Stop: 05/09/17 12:01 Home Med (Patient's Own Medication) 0 unit PO BID [facility] Lorazepam (Ativan) 0.5 mg IVP DAILY PRN PRN Reason: Agitation Polyethylene Glycol (Miralax) 17 gm PO TID [facility] Last Admin: 05/09/17 08:57 Dose: 17 gm Sennosides (Senokot Tab) 17.2 mg PO HS [facility] Last Admin: 05/08/17 21:22 Dose: 17.2 mg - Labs Labs: 05/07/17 12:35 05/07/17 12:35 PT 14.0 Seconds (9.8-13.1) H 05/07/17 13:30 INR 1.2 (0.9-1.2) 05/07/17 13:30
[2017-05-09] MEDS ORDERED: Peg-Electrolyte Oral Soln 4L (Golytely) PO ONE (12:00)
[2017-05-09] MEDS ORDERED: Bisacodyl 5mg EC Tab PO ONE (12:00)
--- NOTE | 2017-05-09 12:13 | CARD ---
APPROVED REPORT EKG Measurement Heart [id number] <Conclusion> Ventricular-paced rhythm Abnormal ECG
[2017-05-09] MEDS: SUPREP BOWEL PREP PO SCH (16:33)
[2017-05-10] MEDS ORDERED: Sodium Chloride 0.45% 1,000 ML IV SCH (00:15)
[2017-05-10] MEDS: SUPREP BOWEL PREP PO SCH (04:26)
--- NOTE | 2017-05-10 08:21 | CP.PCM.PN ---
<Anastasia Singh - Last Filed: 05/10/17 08:04> Subjective - Date & Time of Evaluation Date of Evaluation: 05/10/17 Time of Evaluation: 06:45 - Subjective Subjective: General Surgery Dr. Odonnell Pt S&E @bedside. NAEO. Pt c/o abd pain and bloating from Mag Citrate. Pt denies F/C, N/V. (-)BM per nursing notes and pt report. Pt NPO overnight. Objective - Vital Signs/Intake and Output Vital Signs (last 24 hours): Temp Pulse Resp BP Pulse Ox 98.6 F 84 20 160/81 H 96 05/10/17 07:29 05/10/17 07:29 05/10/17 07:29 05/10/17 07:29 05/10/17 07:29 - Medications Medications: Current Medications Sodium Chloride (Sodium Chloride 0.45%) 1,000 mls @ 50 mls/hr IV .Q20H [facility] Stop: 05/11/17 00:15 Last Admin: 05/10/17 00:31 Dose: 50 mls/hr Lorazepam (Ativan) 0.5 mg IVP DAILY PRN PRN Reason: Agitation Polyethylene Glycol (Miralax) 17 gm PO TID [facility] Last Admin: 05/09/17 16:36 Dose: Not Given Sennosides (Senokot Tab) 17.2 mg PO HS [facility] Last Admin: 05/09/17 22:22 Dose: 17.2 mg - Labs Labs: 05/07/17 12:35 05/07/17 12:35 PT 14.0 Seconds (9.8-13.1) H 05/07/17 13:30 INR 1.2 (0.9-1.2) 05/07/17 13:30 - Constitutional Appears: Non-toxic, No Acute Distress - Head Exam Head Exam: NORMAL INSPECTION - Eye Exam Eye Exam: Normal appearance - ENT Exam ENT Exam: Mucous Membranes Moist - Respiratory Exam Respiratory Exam: NORMAL BREATHING PATTERN. absent: Accessory Muscle Use, Respiratory Distress - Cardiovascular Exam Cardiovascular Exam: absent: Bradycardia, Tachycardia - GI/Abdominal Exam GI & Abdominal Exam: Distended (mild), Soft. absent: Firm, Guarding, Rigid, Rebound - Extremities Exam Extremities Exam: Normal Inspection - Neurological Exam Neurological Exam: Alert, Awake, Oriented x3 - Psychiatric Exam Psychiatric exam: Depressed, Flat Affect - Skin Skin Exam: Dry, Intact, Normal Color, Warm Assessment and Plan - Assessment and Plan (Free Text) Assessment: 77 y/o M w/ chronic constipation s/p sigmoidectomy for colon Ca - Pt scheduled for colonoscopy today - f/u GI recs - cont bowel regimen per GI - monitor bowel fxn - pain management - no surgical intervention at this time - will continue to follow Pt discussed w/ Dr. Belle Singh DO PGY2 <Madan Odonnell - Last Filed: 05/10/17 10:32> Subjective - Date & Time of Evaluation Time of Evaluation: 09:50 - Subjective Subjective: Patient was seen and examined at the bedside. Agree with resident's note above. Objective - Vital Signs/Intake and Output Vital Signs (last 24 hours): Temp Pulse Resp BP Pulse Ox 98.6 F 84 20 160/81 H 96 05/10/17 07:29 05/10/17 07:29 05/10/17 07:29 05/10/17 07:29 05/10/17 07:29 - Medications Medications: Current Medications Sodium Chloride (Sodium Chloride 0.45%) 1,000 mls @ 50 mls/hr IV .Q20H [facility] Stop: 05/11/17 00:15 Last Admin: 05/10/17 00:31 Dose: 50 mls/hr Lorazepam (Ativan) 0.5 mg IVP DAILY PRN PRN Reason: Agitation Polyethylene Glycol (Miralax) 17 gm PO TID [facility] Last Admin: 05/10/17 09:42 Dose: Not Given Sennosides (Senokot Tab) 17.2 mg PO HS [facility] Last Admin: 05/09/17 22:22 Dose: 17.2 mg - Labs Labs: 05/07/17 12:35 05/07/17 12:35 PT 14.0 Seconds (9.8-13.1) H 05/07/17 13:30 INR 1.2 (0.9-1.2) 05/07/17 13:30
--- NOTE | 2017-05-10 08:34 | CP.PCM.PN ---
Subjective - Date & Time of Evaluation Date of Evaluation: 05/10/17 Time of Evaluation: 08:00 - Subjective Subjective: No new symptoms Has not had much response to oral purgatives given for bowel prep last evening Had refused enema this AM I spoke with the and explained the need for as clean a bowel as one can have. Pt will have the enema now Vital signs are stable Pt has refused labs this AM. Objective - Vital Signs/Intake and Output Vital Signs (last 24 hours): Temp Pulse Resp BP Pulse Ox 98.6 F 84 20 160/81 H 96 05/10/17 07:29 05/10/17 07:29 05/10/17 07:29 05/10/17 07:29 05/10/17 07:29 - Medications Medications: Current Medications Sodium Chloride (Sodium Chloride 0.45%) 1,000 mls @ 50 mls/hr IV .Q20H [facility] Stop: 05/11/17 00:15 Last Admin: 05/10/17 00:31 Dose: 50 mls/hr Lorazepam (Ativan) 0.5 mg IVP DAILY PRN PRN Reason: Agitation Polyethylene Glycol (Miralax) 17 gm PO TID [facility] Last Admin: 05/09/17 16:36 Dose: Not Given Sennosides (Senokot Tab) 17.2 mg PO HS [facility] Last Admin: 05/09/17 22:22 Dose: 17.2 mg - Labs Labs: 05/07/17 12:35 05/07/17 12:35 PT 14.0 Seconds (9.8-13.1) H 05/07/17 13:30 INR 1.2 (0.9-1.2) 05/07/17 13:30
[2017-05-10] MEDS: POLYETHYLENE GLYCOL 3350 17 GM/Dose PACKET PO SCH ×2 (09:42→17:02)
[2017-05-10] MEDS ORDERED: Lactated Ringer's 1,000 ML IV ONE (13:21)
[2017-05-10] MEDS ORDERED: Etomidate 20 mg/10ml Inj IV ONE (13:34)
[2017-05-10] MEDS ORDERED: Propofol 10 mg/ml Inj (20 ML) ONE (13:34)
[2017-05-10] MEDS ORDERED: Lidocaine 2% MPF (5 ml) Inj ONE (13:35)
[2017-05-11] MEDS ORDERED: Levothyroxine 25 MCG TAB PO SCH (06:30)
[2017-05-11] MEDS ORDERED: Phenol 1.4% Throat Spray MT PRN (07:45)
--- NOTE | 2017-05-11 07:48 | CP.PCM.PN ---
<Rodrick Givens - Last Filed: 05/11/17 07:49> Subjective - Date & Time of Evaluation Date of Evaluation: 05/11/17 Time of Evaluation: 07:30 - Subjective Subjective: PGY4 GI Followup Pt seen and examined bedside Tolerating diet Still complaining of abd pain No overnight events reports loose BM ROS: 10 point ROS conducted, neg other than above Objective - Vital Signs/Intake and Output Vital Signs (last 24 hours): Temp Pulse Resp BP Pulse Ox 98.4 F 64 20 113/52 L 95 05/11/17 07:19 05/11/17 07:19 05/11/17 07:19 05/11/17 07:19 05/11/17 07:19 - Medications Medications: Current Medications Dabigatran (Pradaxa) 150 mg PO BID [facility] PRN Reason: Protocol Last Admin: 05/10/17 20:08 Dose: 150 mg Digoxin (Lanoxin) 0.125 mg PO DAILY [facility] Levothyroxine Sodium (Synthroid) 25 mcg PO DAILY@0630 [facility] Last Admin: 05/11/17 06:49 Dose: 25 mcg Paroxetine HCl (Paxil) 10 mg PO BID@0900,2200 [facility] Last Admin: 05/10/17 22:02 Dose: 10 mg Phenol/Menthol (Phenaseptic 1.4% Throat [place]) 1 spry MT Q2 PRN PRN Reason: Cough Polyethylene Glycol (Miralax) 17 gm PO TID [facility] Last Admin: 05/10/17 17:02 Dose: Not Given Sennosides (Senokot Tab) 17.2 mg PO HS [facility] Last Admin: 05/10/17 22:00 Dose: Not Given - Labs Labs: 05/07/17 12:35 05/07/17 12:35 PT 14.0 Seconds (9.8-13.1) H 05/07/17 13:30 INR 1.2 (0.9-1.2) 05/07/17 13:30 - Constitutional Appears: Well, No Acute Distress - Head Exam Head Exam: ATRAUMATIC, NORMOCEPHALIC - Eye Exam Eye Exam: Normal appearance - ENT Exam ENT Exam: Mucous Membranes Moist - Respiratory Exam Respiratory Exam: Clear to Ausculation Bilateral. absent: Rales, Rhonchi, Wheezes, Respiratory Distress - Cardiovascular Exam Cardiovascular Exam: REGULAR RHYTHM, +S1, +S2 - GI/Abdominal Exam GI & Abdominal Exam: Soft, Normal Bowel Sounds. absent: Distended, Guarding, Tenderness, Organomegaly - Extremities Exam Extremities Exam: absent: Joint Swelling, Pedal Edema - Neurological Exam Neurological Exam: Alert, Awake, Oriented x3 - Psychiatric Exam Psychiatric exam: Depressed, Flat Affect - Skin Skin Exam: Dry, Intact, Normal Color, Warm Assessment and Plan - Assessment and Plan (Free Text) Assessment: Mayelin Lopez is a 77M w/ a hx of Colon ca s/p partial colon resection, chemotherapy, chronic afib w/ pacemaker on anticoagulation, chronic constipation , depression who presents with abd pain and constipation. s/p colonoscopy POD # 1 stool throughout colon, no obvious mass or strictures Acute on chronic constipation Ileus Abd pain likely 2/2 to above Hx of colon cancer Plan: -s/p colonoscopy, no strictures or massees, -recommend pt stay on a daily bowel regiment -start miralax BID -senna 17mg at bedtime -will eventually need a full colonoscopy with good prep -advance diet as tolerated -will sign off D/w dr. Hicks <Kurt PADILLA,[facility] - Last Filed: 05/11/17 13:29> Objective - Vital Signs/Intake and Output Vital Signs (last 24 hours): Temp Pulse Resp BP Pulse Ox 98.6 F 66 12 107/60 95 05/11/17 12:25 05/11/17 12:25 05/11/17 12:25 05/11/17 12:25 05/11/17 12:25 - Medications Medications: Current Medications Dabigatran (Pradaxa) 150 mg PO BID [facility] PRN Reason: Protocol Last Admin: 05/11/17 10:06 Dose: 150 mg Digoxin (Lanoxin) 0.125 mg PO DAILY [facility] Last Admin: 05/11/17 10:07 Dose: 0.125 mg Levothyroxine Sodium (Synthroid) 25 mcg PO DAILY@0630 [facility] Last Admin: 05/11/17 06:49 Dose: 25 mcg Paroxetine HCl (Paxil) 10 mg PO BID@0900,2200 [facility] Last Admin: 05/11/17 10:07 Dose: 10 mg Phenol/Menthol (Phenaseptic 1.4% Throat [place]) 1 spry MT Q2 PRN PRN Reason: Cough Polyethylene Glycol (Miralax) 17 gm PO TID [facility] Last Admin: 05/11/17 10:13 Dose: 17 gm Sennosides (Senokot Tab) 17.2 mg PO HS [facility] Last Admin: 05/10/17 22:00 Dose: Not Given - Labs Labs: 05/07/17 12:35 05/07/17 12:35 PT 14.0 Seconds (9.8-13.1) H 05/07/17 13:30 INR 1.2 (0.9-1.2) 05/07/17 13:30 Attending/Attestation - Attestation I have personally seen and examined this patient.: Yes I have fully participated in the care of the patient.: Yes I have reviewed all pertinent clinical information, including history, physical exam and plan: Yes Notes (Text): 05/11/17 13:25 Patient seen with GI fellow on rounds. at bedside with whom a detailed discussion regarding the procedure was conducted. In a nutshell this is a 77 yr old M s/p rectal ca s/p primary anastomosis and depression and A fib presented with long standing constipation and thin caliber stools. s/p colonoscopy yesterday that showed liquid stool in the colon which wsa suctioned with copious amount of water. There were no mass lesions or strictures seen in the rectum or left colon. There was some residual stool in colon that was not amenable to suction. Internal hemorrhoids were seen. His constipation may be multi factorial due to bed bound, decresed po intake and severe depression and medication effects. Will continue stringent bowel regimen and increase water and fiber intake.
--- NOTE | 2017-05-11 08:19 | CP.PCM.PN ---
<Rolando Garcia - Last Filed: 05/11/17 08:16> Subjective - Date & Time of Evaluation Date of Evaluation: 05/11/17 Time of Evaluation: 07:10 - Subjective Subjective: General Surgery Patient seen and examined at bedside this morning. No acute events overnight. passing flatus. Denies current abdominal pain, nausea, vomiting, chest pain, fevers, chills. Objective - Vital Signs/Intake and Output Vital Signs (last 24 hours): Temp Pulse Resp BP Pulse Ox 98.4 F 64 20 113/52 L 95 05/11/17 07:19 05/11/17 07:19 05/11/17 07:19 05/11/17 07:19 05/11/17 07:19 - Medications Medications: Current Medications Dabigatran (Pradaxa) 150 mg PO BID [facility] PRN Reason: Protocol Last Admin: 05/10/17 20:08 Dose: 150 mg Digoxin (Lanoxin) 0.125 mg PO DAILY [facility] Levothyroxine Sodium (Synthroid) 25 mcg PO DAILY@0630 [facility] Last Admin: 05/11/17 06:49 Dose: 25 mcg Paroxetine HCl (Paxil) 10 mg PO BID@0900,2200 [facility] Last Admin: 05/10/17 22:02 Dose: 10 mg Phenol/Menthol (Phenaseptic 1.4% Throat [place]) 1 spry MT Q2 PRN PRN Reason: Cough Polyethylene Glycol (Miralax) 17 gm PO TID [facility] Last Admin: 05/10/17 17:02 Dose: Not Given Sennosides (Senokot Tab) 17.2 mg PO HS [facility] Last Admin: 05/10/17 22:00 Dose: Not Given - Labs Labs: 05/07/17 12:35 05/07/17 12:35 PT 14.0 Seconds (9.8-13.1) H 05/07/17 13:30 INR 1.2 (0.9-1.2) 05/07/17 13:30 - Constitutional Appears: Non-toxic, No Acute Distress - Head Exam Head Exam: ATRAUMATIC - Eye Exam Eye Exam: EOMI. absent: Scleral icterus - ENT Exam ENT Exam: Mucous Membranes Moist - Respiratory Exam Respiratory Exam: NORMAL BREATHING PATTERN. absent: Accessory Muscle Use, Respiratory Distress - Cardiovascular Exam Cardiovascular Exam: +S1, +S2. absent: Bradycardia, Tachycardia - GI/Abdominal Exam GI & Abdominal Exam: Distended, Soft. absent: Firm, Guarding, Rigid, Tenderness - Extremities Exam Extremities Exam: Normal Inspection. absent: Calf Tenderness - Neurological Exam Neurological Exam: Alert, Awake, Oriented x3 - Psychiatric Exam Psychiatric exam: Normal Affect - Skin Skin Exam: Normal Color, Warm Assessment and Plan - Assessment and Plan (Free Text) Assessment: 77 y/o M w/ chronic constipation s/p sigmoidectomy for colon Ca; s/p colonoscopy POD#1 Plan: - GI recs - cont bowel regimen per GI - monitor bowel fxn - anti-emetic and pain control PRN - no surgical intervention at this time- please reconsult if needed - discussed with Surgical attending Rolando Garcia PGY1 <Madan Odonnell - Last Filed: 05/11/17 11:11> Subjective - Date & Time of Evaluation Time of Evaluation: 10:40 - Subjective Subjective: Patient was seen and examined at the bedside. Agree with resident's note above. Objective - Vital Signs/Intake and Output Vital Signs (last 24 hours): Temp Pulse Resp BP Pulse Ox 98.4 F 64 20 113/52 L 95 05/11/17 07:19 05/11/17 07:19 05/11/17 07:19 05/11/17 07:19 05/11/17 07:19 - Medications Medications: Current Medications Dabigatran (Pradaxa) 150 mg PO BID [facility] PRN Reason: Protocol Last Admin: 05/11/17 10:06 Dose: 150 mg Digoxin (Lanoxin) 0.125 mg PO DAILY [facility] Last Admin: 05/11/17 10:07 Dose: 0.125 mg Levothyroxine Sodium (Synthroid) 25 mcg PO DAILY@0630 [facility] Last Admin: 05/11/17 06:49 Dose: 25 mcg Paroxetine HCl (Paxil) 10 mg PO BID@0900,2200 [facility] Last Admin: 05/11/17 10:07 Dose: 10 mg Phenol/Menthol (Phenaseptic 1.4% Throat [place]) 1 spry MT Q2 PRN PRN Reason: Cough Polyethylene Glycol (Miralax) 17 gm PO TID [facility] Last Admin: 05/11/17 10:13 Dose: 17 gm Sennosides (Senokot Tab) 17.2 mg PO HS [facility] Last Admin: 05/10/17 22:00 Dose: Not Given - Labs Labs: 05/07/17 12:35 05/07/17 12:35 PT 14.0 Seconds (9.8-13.1) H 05/07/17 13:30 INR 1.2 (0.9-1.2) 05/07/17 13:30
[2017-05-11] MEDS ORDERED: Digoxin 125 mcg (0.125 mg) Tab PO SCH (09:00)
[2017-05-11] MEDS: POLYETHYLENE GLYCOL 3350 17 GM/Dose PACKET PO SCH ×4 (10:05→16:46)
[2017-05-11 10:08] VITALS: PULSE 64
--- NOTE | 2017-05-11 10:25 | CP.PCM.PN ---
Subjective - Date & Time of Evaluation Date of Evaluation: 05/11/17 Time of Evaluation: 09:25 - Subjective Subjective: Benign findings of the colonoscopy discussed with Dr. Hicks Pt laying in bed depressed but otherwise well Abd soft, no distension, no tenderness Ate most of his breakfast this AM Vital signs stable A regimen of laxatives was explained to the by GI Pt started back on his meds at home again To go home today Objective - Vital Signs/Intake and Output Vital Signs (last 24 hours): Temp Pulse Resp BP Pulse Ox 98.4 F 64 20 113/52 L 95 05/11/17 07:19 05/11/17 07:19 05/11/17 07:19 05/11/17 07:19 05/11/17 07:19 - Medications Medications: Current Medications Dabigatran (Pradaxa) 150 mg PO BID [facility] PRN Reason: Protocol Last Admin: 05/11/17 10:06 Dose: 150 mg Digoxin (Lanoxin) 0.125 mg PO DAILY [facility] Last Admin: 05/11/17 10:07 Dose: 0.125 mg Levothyroxine Sodium (Synthroid) 25 mcg PO DAILY@0630 [facility] Last Admin: 05/11/17 06:49 Dose: 25 mcg Paroxetine HCl (Paxil) 10 mg PO BID@0900,2200 [facility] Last Admin: 05/11/17 10:07 Dose: 10 mg Phenol/Menthol (Phenaseptic 1.4% Throat [place]) 1 spry MT Q2 PRN PRN Reason: Cough Polyethylene Glycol (Miralax) 17 gm PO TID [facility] Last Admin: 05/11/17 10:13 Dose: 17 gm Sennosides (Senokot Tab) 17.2 mg PO HS [facility] Last Admin: 05/10/17 22:00 Dose: Not Given - Labs Labs: 05/07/17 12:35 05/07/17 12:35 PT 14.0 Seconds (9.8-13.1) H 05/07/17 13:30 INR 1.2 (0.9-1.2) 05/07/17 13:30
--- NOTE | 2017-05-11 11:01 | CP.PCM.DIS ---
Provider - Provider Date of Admission: 05/07/17 13:15 Attending physician: Otis Alcaraz MD Time Spent in preparation of Discharge (in minutes): 40 Hospital Course - Lab Results Lab Results: Most Recent Lab Values WBC 5.1 K/uL (4.8-10.8) 05/07/17 12:35 RBC 4.52 Mil/uL (4.40-5.90) 05/07/17 12:35 Hgb 13.4 g/dL (12.0-18.0) 05/07/17 12:35 Hct 40.1 % (35.0-51.0) 05/07/17 12:35 MCV 88.5 fl (80.0-94.0) 05/07/17 12:35 MCH 29.5 pg (27.0-31.0) 05/07/17 12:35 MCHC 33.4 g/dL (33.0-37.0) 05/07/17 12:35 RDW 13.9 % (11.5-14.5) 05/07/17 12:35 Plt Count 159 K/uL (130-400) 05/07/17 12:35 MPV 7.7 fl (7.2-11.7) 05/07/17 12:35 Neut % (Auto) 67.9 % (50.0-75.0) 05/07/17 12:35 Lymph % (Auto) 25.4 % (20.0-40.0) 05/07/17 12:35 [place] % (Auto) 4.4 % (0.0-10.0) 05/07/17 12:35 Eos % (Auto) 1.6 % (0.0-4.0) 05/07/17 12:35 Baso % (Auto) 0.7 % (0.0-2.0) 05/07/17 12:35 Neut # 3.5 K/uL (1.8-7.0) 05/07/17 12:35 Lymph # 1.3 K/uL (1.0-4.3) 05/07/17 12:35 [place] # 0.2 K/uL (0.0-0.8) 05/07/17 12:35 Eos # 0.1 K/uL (0.0-0.7) 05/07/17 12:35 Baso # 0.0 K/uL (0.0-0.2) 05/07/17 12:35 PT 14.0 Seconds (9.8-13.1) H 05/07/17 13:30 INR 1.2 (0.9-1.2) 05/07/17 13:30 Sodium 142 mmol/l (132-148) 05/07/17 12:35 Potassium 3.8 MMOL/L (3.6-5.0) 05/07/17 12:35 Chloride 104 mmol/L (98-107) 05/07/17 12:35 Carbon Dioxide 30 mmol/L (22-30) 05/07/17 12:35 Anion Gap 12 (10-20) 05/07/17 12:35 BUN 14 mg/dl (9-20) 05/07/17 12:35 Creatinine 0.7 mg/dL (0.8-1.5) L 05/07/17 12:35 Est GFR ( Amer) > 60 05/07/17 12:35 Est GFR (Non-Af Amer) > 60 05/07/17 12:35 Random Glucose 92 mg/dL (75-110) 05/07/17 12:35 Calcium 8.4 mg/dL (8.4-10.2) 05/07/17 12:35 Total Bilirubin 0.7 mg/dl (0.2-1.3) 05/07/17 12:35 AST 14 U/L (17-59) L 05/07/17 12:35 ALT 21 U/L (21-72) D 05/07/17 12:35 Alkaline Phosphatase 65 U/L (38-126) 05/07/17 12:35 Total Protein 7.5 G/DL (6.3-8.2) 05/07/17 12:35 Albumin 3.7 g/dL (3.5-5.0) 05/07/17 12:35 Globulin 3.9 gm/dL (2.2-3.9) 05/07/17 12:35 Albumin/Globulin Ratio 0.9 (1.0-2.1) L 05/07/17 12:35 Lipase 50 U/L (23-300) 05/07/17 12:35 - Hospital Course Hospital Course: This 77-year- old man was hospitalized with severe abdominal pain and distention and a history off constipation for approximately 3 days and in the emergency room an abdominal x-ray demonstrated multiple air-fluid levels and the patient was hospitalized with a diagnosis of intestinal obstruction. 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 Subsequently he had undergone a regular surveillance examination and no recurrence had been identified. The patient had developed severe depression over the last 3-4 years requiring multiple hospitalizations and multiple changes of psychiatric test and psychiatric drugs. The patient had undergone a partial colonoscopy which was reported as being unsatisfactory a cause of persistent stool in the colon. The patient had had chronic constipation over the last 3-4 years. The patient had had no vomiting before arriving in the emergency room. The patient was hospitalized and a GI evaluation was carried out. A colonoscopy was recommended after a CT scan of the abdomen failed to show any evidence of recurrent malignancy. The patient underwent partial bowel prep because he declined to have the second bottle off laxity. Multiple enemas were administered just prior to his colonoscopy and he finally underwent the procedure on May 10. The findings are included in patient's chart but briefly report they did not show any evidence of recurrent malignancy in the lumen. The colonoscopy: Was successfully passed to ileocecal junction. On the following day the patient was able to tolerate a full breakfast and there was no evidence of abdominal distention or discomfort. A full regimen off laxity was was explained to the patient's and the patient was allowed to return home taking his medications. He will follow-up with the benefits assistant as an outpatient. 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 Severe depression. Chronic atrial fibrillation with status post VVI pacemaker implant and oral anticoagulation. Diet medications her activities were explained to the patient and his . He will follow-up with the benefits assistant for his GI issues. From cardiac point of view he was stable at the time of discharge. Discharge Exam - Head Exam Head Exam: ATRAUMATIC Discharge Plan - Follow Up Plan Condition: FAIR Disposition: HOME/ ROUTINE Instructions: How To Wash Your Hands (GEN), Bowel Obstruction (GEN)
[2017-05-11 15:44] VITALS: BP 117/71; RESP 18; TEMP 98.3; O2SAT 94
[2017-05-11 16:08] VITALS: PULSE 66
== END 2017-05-11 18:06 | disposition home or self-care (01) | DRG 389 ==
LOC: H.ER 11:00 → H.ERHOLD 13:15 → H.MEDSURG1 17:50
PROVIDERS: ADMIT Internal Medicine Cardiovascular Disease; ATTEND Internal Medicine Cardiovascular Disease
PROC: 3E1H88Z Irrigation of Lower GI using Irrigating Substance, Via Natural or Artificial Opening Endoscopic (ICD-10-PCS; 2017-05-10)
PROC: 0DJD8ZZ Inspection of Lower Intestinal Tract, Via Natural or Artificial Opening Endoscopic (ICD-10-PCS; principal; 2017-05-10 13:45)
DX: K56.600 Partial intestinal obstruction, unspecified as to cause (principal); F32.2 Major depressive disorder, single episode, severe without psychotic features; I48.2 Chronic atrial fibrillation; Z85.048 Personal history of other malignant neoplasm of rectum, rectosigmoid junction, and anus; Z79.01 Long term (current) use of anticoagulants; Z95.0 Presence of cardiac pacemaker; E03.9 Hypothyroidism, unspecified; K64.8 Other hemorrhoids; Z88.1 Allergy status to other antibiotic agents; Z88.0 Allergy status to penicillin; F41.9 Anxiety disorder, unspecified; N40.0 Benign prostatic hyperplasia without lower urinary tract symptoms; K29.70 Gastritis, unspecified, without bleeding; I10 Essential (primary) hypertension; Z74.01 Bed confinement status; Z92.21 Personal history of antineoplastic chemotherapy